=== PATIENT | female | born 2000 | race Hispanic/Latino ===

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

== ENCOUNTER 2020-01-23 18:14 | Emergency (ER) | payer MEDICAID ==
[2020-01-23] MEDS ORDERED: CEPHALEXIN 500 MG CAPSULE ONE (19:41)
[2020-01-23] MEDS ORDERED: DIPHENHYDRAMINE HCL 25 MG CAPSULE ONE (19:42)
== END 2020-01-23 19:55 | disposition home or self-care (01) ==
LOC: EDH 18:14
DX: L73.9 Follicular disorder, unspecified (principal); J45.909 Unspecified asthma, uncomplicated
CPT/HCPCS: 99283; Q0163

== ENCOUNTER 2020-05-05 07:44 | Emergency (ER) | payer MEDICAID ==
[2020-05-05] MEDS ORDERED: METHYLPREDNISOLONE SOD SUCC 40MG/ML 1ML ONE (07:57)
== END 2020-05-05 08:19 | disposition home or self-care (01) ==
LOC: EDH 07:44
DX: L23.89 Allergic contact dermatitis due to other agents (principal); J45.909 Unspecified asthma, uncomplicated
CPT/HCPCS: 96372; 99283; J2920

== ENCOUNTER 2020-08-12 17:24 | Emergency (ER) | payer MEDICAID ==
[2020-08-12] MEDS ORDERED: ONDANSETRON HCL 4 MG/2 ML VIAL ONE (18:53)
[2020-08-12] MEDS ORDERED: ACETAMINOPHEN 325 MG TAB ONE (18:53)
[2020-08-12] MEDS ORDERED: IBUPROFEN 600 MG TABLET ONE (18:53)
[2020-08-12] MEDS ORDERED: SODIUM CHLORIDE 0.9% 1000ML 1,000 ML IV ONE (18:54)
[2020-08-12 19:07] LABS: BASOPHILS % (AUTO) 0.4 % (0.0-5.0); EOSINOPHILS % (AUTO) 1.4 % (0.0-8.0); LYMPHOCYTES % (AUTO) 5.9 % (21.0-51.0); MEAN CORPUSCULAR HGB CONC 32.3 g/dL (32.0-36.0); MEAN CORPUSCULAR VOLUME 86.8 fL (80-100); PLATELET COUNT (AUTO) 407 K/uL (130-400); RED BLOOD CELL COUNT(AUTO) 5.07 MIL/uL (4.00-5.50); RED CELL DISTRIBUTION WIDTH 13.8 % (11.0-15.5); WHITE BLOOD COUNT (AUTO) 13.8 K/uL (4.8-10.8)
[2020-08-12 19:13] LABS: CREATININE 0.8 mg/dL (0.5-1.5); POTASSIUM 3.3 mmol/L (3.5-5.1)
[2020-08-12 19:17] LABS: ALBUMIN 4.4 g/dL (3.5-5.0); BILIRUBIN,TOTAL 0.6 mg/dL (0.2-1.0); TOTAL PROTEIN, SERUM 8.2 g/dL (6.0-8.3)
[2020-08-12] MEDS ORDERED: POTASSIUM BICARB/CIT AC 25 MEQ TABLET.EFF ONE (19:20)
[2020-08-12 19:41] LABS: RAPID GROUP A STREP NEGATIVE (NEGATIVE)
[2020-08-12 20:23] LABS: APPEARANCE,URINE CLOUDY (CLEAR); BILIRUBIN,URINE NEGATIVE (NEGATIVE); COLOR,URINE YELLOW (YELLOW); GLUCOSE, URINE (UA) NEGATIVE (NEGATIVE); KETONES,URINE NEGATIVE (NEGATIVE); LEUKOCYTE ESTERASE ,URINE SMALL (NEGATIVE); NITRATE,URINE NEGATIVE (NEGATIVE); OCCULT BLOOD,URINE NEGATIVE (NEGATIVE); PROTEIN,URINE NEGATIVE (NEGATIVE)
[2020-08-12 20:26] LABS: HCG,QUAL RESULT NEGATIVE (NEGATIVE)
[2020-08-12 20:31] LABS: AMPHET/METH SCREEN,URINE NEGATIVE (NEGATIVE); BARBITURATE SCREEN, URINE NEGATIVE (NEGATIVE); BENZODIAZEPINES SCREEN,URINE NEGATIVE (NEGATIVE); CANNABINOID SCREEN,URINE NEGATIVE (NEGATIVE); COCAINE SCREEN,URINE NEGATIVE (NEGATIVE); OPIATE SCREEN,URINE NEGATIVE (NEGATIVE); PHENCYCLIDINE SCREEN,URINE NEGATIVE (NEGATIVE); RBC,URINE 0-1 /HPF (0-1)
[2020-08-12 20:32] LABS: AMORPHOUS SEDIMENT,UR Few /LPF (None Seen); BACTERIA,URINE Few /HPF (None Seen); SQUAMOUS EPITHELIAL CELL,UR Few /HPF (0-2)
== END 2020-08-12 22:34 | disposition home or self-care (01) ==
LOC: EDH 17:24
DX: K52.9 Noninfective gastroenteritis and colitis, unspecified (principal); R50.9 Fever, unspecified; R51.9 Headache, unspecified; Z20.822 Contact with and (suspected) exposure to COVID-19
CPT/HCPCS: 36415; 71045; 80053; 80305; 81001; 81025; 83690; 85025; 87426; 87804 ×2; 87880; 96361; 96374; 99284; J2405; J7030; U0003

== ENCOUNTER 2022-03-20 19:51 | Emergency (ER) | payer MEDICAID ==
[~2022-03-20] VITALS: Ht 165.1 cm; Wt 82.1 kg
[2022-03-20 21:25] VITALS: BP 121/79
== END 2022-03-20 22:57 | disposition left against medical advice (07) ==
LOC: EDH 19:51
DX: R19.7 Diarrhea, unspecified (principal); R11.2 Nausea with vomiting, unspecified; Z53.21 Procedure and treatment not carried out due to patient leaving prior to being seen by health care provider

== ENCOUNTER 2024-05-31 07:15 | Emergency (ER) | payer MEDICAID ==
[~2024-05-31] VITALS: Ht 157.5 cm; Wt 72.6 kg
--- NOTE | 2024-05-31 07:46 | NUR ---
PATIENT REPORTS TAKING TYLENOL CONSUMER INSIGHTS SPECIALIST ER MD AWARE
[2024-05-31] MEDS: acetaMINOPHEN 500 MG TABLET PO ONE (07:52)
[2024-05-31 08:00] LABS: RAPID GROUP A STREP negative (NEGATIVE)
[2024-05-31 08:04] LABS: SARS-CoV-2, RNA, NAAT NEGATIVE SARS CoV-2 (NEGATIVE)
[2024-05-31 08:10] LABS: INFLUENZA TYPE B Negative For Type B (NEGATIVE)
[2024-05-31 08:21] LABS: INFLUENZA TYPE A Positive For Type A (NEGATIVE)
--- NOTE | 2024-05-31 08:21 | NUR ---
FLU A + ERMD MADE AWARE
[2024-05-31] MEDS: 0.9%NACL 1000ML 1,000 ML IV ONE (08:36)
--- NOTE | 2024-05-31 08:43 | ERN ---
General Chief Complaint: Flu Symptoms Stated Complaint: FLU SYMPTOMS Time Seen by MD: 07:17 Source: patient History of Present Illness Initial Comments Patient is a 23-year-old female coming in with URI symptoms. Per patient these symptoms began two days ago. She states that she has been having cough body aches and a sore throat. Allergies: Coded Allergies: No Known Drug Allergies (Unverified Allergy, Unknown, 06/27/19) Past Medical History Past Medical History: No Pertinent History Past Surgical History: None Female( History) LMP: Apr 14, 2023 ROS Dictation CONSTITUTIONAL: No chills, fever, no weakness, no diaphoresis, no malaise. HEAD/FACE: No signs of trauma. EENT: No eye pain, no blurred vision, no tearing, no double vision, no ear pain, no ear discharge, no nose pain, no nasal congestion, no throat pain, no throat swelling, no mouth pain. RESPIRATORY: No cough, no orthopnea, no SOB, no stridor, no wheezing. CARDIOVASCULAR: No chest pain, no edema, no palpitations, no syncope. GASTROINTESTINAL/ABDOMINAL: No abdominal pain, no constipation, no diarrhea, no nausea, no vomiting. GENITOURINARY: No abnormal discharge, no dysuria, no frequent urination, no hematuria. No complaints of pain in the genitals. MUSCULOSKELETAL: No back pain, no gout, no joint pain, no joint swelling, no muscle pain, no muscle stiffness, no neck pain. INTEGUMENTARY: No change in color, no change in hair/nails, no dryness, no lesion, no lumps, no rash. NEUROLOGICAL/PSYCH: No anxiety, not depressed, no emotional problem, no headache, no numbness, no pre-existing deficit, no history of seizures, no tremors, no weakness. HEMATOLOGIC/LYMPHATIC: Not anemic, no history of blood clots, no apparent bleeding, no bruising, glands not swollen. All Systems Negative, Except as Noted. Physical Exam Physical Exam Dictation VITAL SIGNS: Reviewed. GENERAL APPEARANCE: Alert, oriented x3, no acute distress, obese. HEAD AND FACE: Non-traumatic. EYES: PERRL, pink conjunctivas, eyelid no trauma, anterior chamber clear. EARS: Pinnas intact and no signs of trauma or erythema. Ear canals clear and n o discharge. TMs no erythema. NOSE: No discharge, no bleeding. OROPHARYNX: Mouth normal, teeth no caries, tongue pink. Pharynx clear, no erythema. Tonsils no exudates, no abscesses noted. Mucous membrane moist. NECK: Supple, non-tender, no thyromegaly, no masses, no JVD, no bruits. BREAST: Deferred. CHEST: No tenderness, no crepitus, no paradoxical movement, no retractions. LUNGS: Clear, well-ventilated, symmetric, no rales, no wheezing, no rhonchi, no stridor, good breath sounds bilaterally. HEART: Regular rate, regular rhythm, no murmur, no gallops. VASCULAR: No peripheral edema. ABDOMEN: Soft, positive bowel sounds, nondistended, no guarding, nontender, no rebound, no masses no hepatomegaly, no splenomegaly, no Oneill's sign, no hernias. RECTAL: Deferred. GENITAL: Deferred. NEUROLOGICAL: Normal speech, gross motor function intact, gross sensory function intact. MUSCULOSKELETAL: Neck nontender, full range of motion, back nontender, full range of motion. EXTREMITIES: Nontender, full range of motion. SKIN: Color pink, dry, no turgor, no rash, no lacerations, no abrasions, no contusions. LYMPHATICS: Deferred. Results Laboratory and Microbiology Lab and Micro Result Laboratory Tests Test 05/31/24 07:24 05/31/24 08:20 05/31/24 09:02 Influenza Type A Antigen Positive For Type A Influenza Type B Antigen Negative For Type B SARS-CoV-2, RNA, NAAT NEGATIVE SARS CoV-2 Group A Streptococcus Rapid negative (NEGATIVE) White Blood Count 10.2 K/uL (4.8-10.8) Red Blood Count 5.38 MIL/uL (4.00-5.50) Hemoglobin 15.0 g/dL (12.0-16.0) Hematocrit 45.5 % (36-48) Mean Corpuscular Volume 84.6 fL (79-99) Mean Corpuscular Hemoglobin 27.9 pg (27.0-33.0) Mean Corpuscular Hemoglobin Concent 33.0 g/dL (32.0-36.0) Red Cell Distribution Width 16.0 % (11.0-15.5) H Platelet Count 265 K/uL (130-400) Mean Platelet Volume 11.3 fL (7.5-10.5) H Nucleated Red Blood Cells 0.0 % (0.0-0.19) Sodium Level 135 mmol/L (136-145) L Potassium Level 3.4 mmol/L (3.5-5.1) L Chloride Level 101 mmol/L (101-111) Carbon Dioxide Level 24 mmol/L (21-32) Blood Urea Nitrogen 9 mg/dL (7-18) Creatinine 0.6 mg/dL (0.5-1.0) Glomerular Filtration Rate Calc 129 mL/min (>90) Random Glucose 102 mg/dL (70-105) Total Calcium 8.5 mg/dL (8.5-10.1) Labs Reviewed?: Yes MDM MDM: Differential diagnosis: Influenza, COVID, flu, strep Patient is a 23-year-old female coming in to be evaluated for generalized body weakness. On physical exam patient does have URI symptoms. Patient was tested for flu and was positive for influenza A. Patient will be discharged in stable condition she was hydrated due to tachycardia laboratory workup negative for acute findings. ED Course Orders Procedure Category Date Status Time Covid Rna Naat LAB 05/31/24 Complete 07:21 Influenza Type A & B, LAB 05/31/24 Complete Rapid 07:21 Rapid (Group A Strep) LAB 05/31/24 Complete 07:21 Acetaminophen 500mg PHA 05/31/24 Complete Tab (Tylenol 500mg T 08:00 Cbc Without LAB 05/31/24 Complete Differential 07:56 0.9%Nacl 1000ml (Ns PHA 05/31/24 Complete 1000ml) 08:00 Basic Metabolic Panel LAB 05/31/24 Complete 08:53 Potassium Bicarb/Cit PHA 05/31/24 Logged Ac 25meq (K-Lyte Ta 10:00 Current Medications Medications (Trade) Dose Ordered Sig/Dominic Route PRN Reason Start Time Stop Time Status Last Admin Dose Admin Acetaminophen (TYLenol 500MG TAB) 1,000 mg ONCE ONCE PO 05/31/24 08:00 05/31/24 08:01 DC 05/31/24 07:52 Potassium Bicarbonate (K-Lyte Tablet Eff 25 Meq Tablet.eff) 25 meq ONCE ONCE PO 05/31/24 10:00 05/31/24 10:01 UNV Sodium Chloride 1,000 ml @ 0 mls/hr Q0M ONCE IV 05/31/24 08:00 05/31/24 08:01 DC 05/31/24 08:36 Vital Signs Date Time Temp Pulse Resp B/P (MAP) Pulse Ox O2 Delivery O2 Flow Rate FiO2 05/31/24 09:34 98.8 113 20 107/79 97 Room Air* 0 05/31/24 07:52 101.8 05/31/24 07:33 101.8 130 20 119/75 99 Room Air* 0 05/31/24 07:16 100.8 139 16 122/81 98 Room Air 0 DX & DISP Disposition: Discharge Departure Impression: Primary Impression: Influenza A Condition: Stable Scripts Acetaminophen (Tylenol) 500 Mg Tab 1 TAB PO Q6HPRN PRN for pain or fever for 5 Days, #30 TAB 0 Refills Prov: KRISTAL CROFT MD 05/31/24 Oseltamivir Phosphate (Tamiflu) 75 Mg Cap 1 CAP PO BID for 5 Days, #10 CAP 0 Refills Prov: KRISTAL CROFT MD 05/31/24 Additional Instructions: FOLLOW-UP WITH PRIMARY CARE PROVIDER IN 1 TO 2 DAYS. TAKE MEDICATIONS DIRECTED HERE IN THE EMERGENCY ROOM. OKAY TO CONTINUE HOME MEDICATIONS UNLESS OTHERWISE DISCUSSED DURING YOUR VISIT IN THE EMERGENCY ROOM TODAY. RETURN TO YOUR NEAREST EMERGENCY ROOM IF SYMPTOMS WORSEN OR IF THERE IS NO IMPROVEMENT. CALL 911 IF YOU NEED IMMEDIATE ASSISTANCE. TAKE TYLENOL [id number] NEEDED AND IF NO CONTRAINDICATIONS ARE PRESENT. INCREASE ORAL HYDRATION. A WOUND CULTURE OR URINE CULTURE WAS ORDERED HERE IN THE EMERGENCY ROOM DEPARTMENT PLEASE FOLLOW-UP WITH PRIMARY CARE PROVIDER AND ADVISE THEM TO GET REPEAT PORTS FROM OUR FACILITY. IF YOU HAD ANY JENNIE WRAP/SPLINTS THAT WERE APPLIED HERE, PLEASE DO NOT REMOVE THEM UNTIL YOU SEE YOUR PRIMARY CARE OR SPECIALTY. Referrals: Referrals: NONE (PCP) VÍCTOR VANESSA MD Time of Disposition: 09:44 KRISTAL CROFT MD May 31, 2024 08:43
[2024-05-31 08:48] LABS: HEMATOCRIT 45.5 % (36-48); MEAN CORPUSCULAR HEMOGLOBIN 27.9 pg (27.0-33.0); MEAN CORPUSCULAR VOLUME 84.6 fL (79-99); RED BLOOD CELL COUNT(AUTO) 5.38 MIL/uL (4.00-5.50); WHITE BLOOD COUNT (AUTO) 10.2 K/uL (4.8-10.8)
[2024-05-31 09:23] LABS: CREATININE 0.6 mg/dL (0.5-1.0); POTASSIUM 3.4 mmol/L (3.5-5.1)
[2024-05-31 09:34] VITALS: BP 107/79; PULSE 113; RESP 20; TEMP 98.8; O2SAT 97
[2024-05-31] MEDS ORDERED: ACET-66 PO (09:45)
[2024-05-31] MEDS ORDERED: OSEL75 PO (09:45)
[2024-05-31] MEDS: PoTASSium BIcarbonate/CIT AC 25 MEQ TABLET.EFF PO ONE (09:53)
[2024-05-31 09:54] VITALS: TEMP 98.8
== END 2024-05-31 10:02 | disposition home or self-care (01) ==
LOC: EDH 07:15
DX: J10.1 Influenza due to other identified influenza virus with other respiratory manifestations (principal); Z20.822 Contact with and (suspected) exposure to COVID-19
CPT/HCPCS: 99283; 96360; 87635; 80048; 85027; 87880; 87804 ×2; 36415; J7030